=== PATIENT | female | born 1930 ===

== ENCOUNTER 2017-12-02 13:00 | Inpatient (IN) | payer OTHER ==
[~2017-12-02] VITALS: Ht 154.9 cm; Wt 72.6 kg
[2017-12-02] MEDS ORDERED: CARDIZEM30 MG PO (16:50)
[2017-12-02] MEDS ORDERED: SINGULAIR10 MG PO (16:50)
[2017-12-02] MEDS ORDERED: RESTORIL30 M1 PO (16:51)
[2017-12-02] MEDS ORDERED: SIMVASTATIN10 MG PO (16:51)
[2017-12-02] MEDS ORDERED: ELIQUIS5 MG PO (16:51)
[2017-12-05] MEDS ORDERED: DOCUSATE SODIU100 MG PO (11:16)
[2017-12-05] MEDS ORDERED: GABAPENTIN800 MG PO (11:16)
[2017-12-05] MEDS ORDERED: AMOX-CLAV 875-1 EACH PO (11:17)
[2017-12-05] MEDS ORDERED: CLONAZEPAM1 MG PO (11:18)
[2017-12-05] MEDS ORDERED: PERCOCET 5-3251 EACH PO (11:18)
[2017-12-05] MEDS ORDERED: RESTORIL30 M1 PO (14:20)
== END 2017-12-05 18:35 | DRG 455 ==
LOC: O/R 12-04 04:50 → SURH 12-04 04:50 → SURG 12-04 13:00 → SURH 12-04 16:59
PROVIDERS: Orthopaedic Surgery Orthopaedic Surgery of the Spine
PROC: 0SG0071 Fusion of Lumbar Vertebral Joint with Autologous Tissue Substitute, Posterior Approach, Posterior Column, Open Approach (ICD-10-PCS; 2017-12-04)
PROC: 0ST20ZZ Resection of Lumbar Vertebral Disc, Open Approach (ICD-10-PCS; 2017-12-04)
PROC: 0SG00AJ Fusion of Lumbar Vertebral Joint with Interbody Fusion Device, Posterior Approach, Anterior Column, Open Approach (ICD-10-PCS; 2017-12-04)
PROC: 07DS3ZZ Extraction of Vertebral Bone Marrow, Percutaneous Approach (ICD-10-PCS; 2017-12-04)
PROC: 0SG00A0 Fusion of Lumbar Vertebral Joint with Interbody Fusion Device, Anterior Approach, Anterior Column, Open Approach (ICD-10-PCS; principal; 2017-12-04 16:00)
DX: M48.061 Spinal stenosis, lumbar region without neurogenic claudication (principal); M43.16 Spondylolisthesis, lumbar region; M51.16 Intervertebral disc disorders with radiculopathy, lumbar region; I10 Essential (primary) hypertension; J45.998 Other asthma